=== PATIENT | female | born 1990 | race African-American/Black ===

== ENCOUNTER 2023-07-05 22:33 | Emergency (ER) | payer OTHER ==
[~2023-07-05] VITALS: Ht 170.2 cm; Wt 114.8 kg
[2023-07-06] MEDS ORDERED: IV NS 0.9% 1,000 ML BAG IV ONE
[2023-07-06] MEDS ORDERED: ONDANSETRON HCL/PF 4 MG/2 ML VIAL IVP ONE
[2023-07-06] MEDS ORDERED: ONDANSETRON HCL/PF 4 MG/2 ML VIAL ONE (00:10)
[2023-07-06 00:23] LABS: BASOPHILS # (AUTO) 0.1 K/uL (0.0-0.2); BASOPHILS % (AUTO) 0.9 % (0.0-2.0); EOSINOPHILS # (AUTO) 0.1 K/uL (0.0-0.7); EOSINOPHILS % (AUTO) 1.4 % (0.0-6.0); HEMATOCRIT 32 % (33-45); HEMOGLOBIN 9.7 g/dL (11.5-14.8); LYMPHOCYTES # (AUTO) 2.7 K/uL (0.8-4.8); LYMPHOCYTES % (AUTO) 36.5 % (20.0-44.0); MEAN CORPUSCULAR HEMOGLOBIN 22 PG (26.0-33.0); MEAN CORPUSCULAR HGB CONC 30 g/dl (31.0-36.0); MEAN CORPUSCULAR VOLUME 72 fL (82-100); MONOCYTES # (AUTO) 0.5 K/uL (0.1-1.30); MONOCYTES % (AUTO) 6.2 % (2.0-12.0); NEUTROPHILS # (AUTO) 4.1 K/uL (1.8-8.9); PLATELET COUNT (AUTO) 244 K/uL (150-450); RED CELL DISTRIBUTION WIDTH 16.9 % (11.5-15.0); WHITE BLOOD COUNT (AUTO) 7.4 K/uL (4.3-11.0)
[2023-07-06 00:47] LABS: CALCIUM, SERUM 9.2 mg/dL (8.5-10.1); CREATININE 0.7 mg/dL (0.6-1.3); POTASSIUM 3.4 mmol/L (3.5-5.1)
[2023-07-06 01:09] LABS: ALBUMIN 3.9 g/dL (3.4-5.0); BILIRUBIN,DIRECT 0.1 mg/dL (0.0-0.2); BILIRUBIN,TOTAL 0.2 mg/dL (0.2-1.0); TOTAL PROTEIN, SERUM 8.1 g/dL (6.4-8.2)
[2023-07-06] MEDS ORDERED: ONDA4TAB11 PO (01:23)
[2023-07-06 02:02] VITALS: BP 137/76; TEMP 98.9; O2SAT 95
== END 2023-07-06 02:03 | disposition home or self-care (01) ==
LOC: ER 22:36
DX: R19.7 Diarrhea, unspecified (principal); R11.2 Nausea with vomiting, unspecified; J45.909 Unspecified asthma, uncomplicated
CPT/HCPCS: 99283; 36415; 96374; 96361; 85025; 80048; 83690; 80076; J2405; J7030

== ENCOUNTER 2023-10-19 17:37 | Emergency (ER) | payer OTHER ==
[~2023-10-19] VITALS: Ht 170.2 cm; Wt 104.3 kg
[~2023-10-19 17:37] MED LIST: ONDA4TAB11 PO
[2023-10-19 17:58] VITALS: BP 136/86; TEMP 98
[2023-10-19 18:14] VITALS: O2SAT 100
== END 2023-10-19 18:14 | disposition home or self-care (01) ==
LOC: ER 17:45
DX: Z71.1 Person with feared health complaint in whom no diagnosis is made (principal); J45.909 Unspecified asthma, uncomplicated
CPT/HCPCS: 99282; A4217